=== PATIENT | female | born 1990 | race Caucasian/White ===

== ENCOUNTER 2020-03-11 13:45 | Inpatient (IN) | payer OTHER ==
[~2020-03-11] VITALS: Ht 165.1 cm; Wt 125.0 kg
[2020-03-11 14:31] VITALS: BP 129/78
[2020-03-11] MEDS ORDERED: OXYTOCIN 30U/ 0.9% NaCL 500ML 500 ML IV ONE (14:48)
[2020-03-11] MEDS ORDERED: D5%-LACTATED RINGERS 1,000 ML IV SCH (14:48)
[2020-03-11] MEDS ORDERED: OXYTOCIN 30U/ 0.9% NaCL 500ML 500 ML IV PRN (14:48)
[2020-03-11] MEDS ORDERED: ONDANSETRON 2MG/ML, 2ML IVPush PRN (15:00)
[2020-03-11] MEDS ORDERED: CALCIUM CARBONATE 500 MG TAB.CHEW PO PRN (15:00)
[2020-03-11] MEDS ORDERED: TERBUTALINE 1 MG/ML, 1ML SQ PRN (15:00)
[2020-03-11] MEDS ORDERED: FENTANYL PF 100 MCG/2ML IVPush PRN (15:00)
[2020-03-11] MEDS ORDERED: ALUMINUM/MAG/SIMETHICONE 30 ML UDC PO PRN (15:00)
[2020-03-11] MEDS ORDERED: TERBUTALINE 1 MG/ML, 1ML IVPush PRN (15:00)
[2020-03-11] MEDS ORDERED: SODIUM CITRATE/CITRIC ACID 30 ML UDC PO PRN (15:00)
[2020-03-11] MEDS: LACTATED RINGERS 1,000 ML IV SCH ×2 (15:15→22:30)
[2020-03-11] MEDS ORDERED: NEWBORN KIT ONE (15:38)
[2020-03-11] MEDS ORDERED: LIDOCAINE 1%, 20ML ONE (15:38)
[2020-03-11] MEDS ORDERED: MISOPROSTOL 200 MCG TABLET ONE (15:39)
[2020-03-11] MEDS ORDERED: OXYTOCIN 30U/ 0.9% NaCL 500ML 500 ML ONE (15:39)
[2020-03-11 15:40] LABS: BASOPHILS % (AUTO) 0 % (0-1); EOSINOPHILS % (AUTO) 2 % (1-7); LYMPHOCYTES % (AUTO) 13 % (22-44); MEAN CORPUSCULAR HEMOGLOBIN 28.7 pg (27.0-34.8); MEAN CORPUSCULAR HGB CONC 33.3 g/dL (32.4-35.8); MEAN PLATELET VOLUME 9.2 fL (7.4-10.4); MONOCYTES % (AUTO) 5 % (2-9); NEUTROPHILS % (AUTO) 81 % (42-75); PLATELET COUNT 314 x10^3/uL (130-400); RED BLOOD COUNT 4.65 x10^6/uL (3.82-5.3); RED CELL DISTRIBUTION WIDTH 14.4 % (9.6-15.2)
[2020-03-11 15:41] LABS: MD NO
[2020-03-11] MEDS ORDERED: PNV1TABL85 PO (16:33)
[2020-03-11] MEDS ORDERED: CETI-237 PO (16:33)
[2020-03-11] MEDS ORDERED: ERGO400T3 PO (16:33)
[2020-03-11] MEDS ORDERED: CALC400T6 PO (16:33)
[2020-03-11 17:26] LABS: ALANINE AMINOTRANSFERASE 20 U/L (12-78); ALBUMIN 2.5 g/dL (3.4-5.0); ANION GAP 9 mmol/L (5-15); CALCIUM 9.3 mg/dL (8.5-10.1); CHLORIDE 106 mmol/L (98-107); CREATININE 0.88 mg/dL (0.55-1.02)
[2020-03-11 17:28] LABS: ALKALINE PHOSPHATASE 279 U/L (45-117); BILIRUBIN, DIRECT < 0.1 mg/dL (0.1-0.2); BILIRUBIN,TOTAL 0.2 mg/dL (0.2-1.0); TOTAL PROTEIN 7.1 g/dL (6.4-8.2)
[2020-03-11 17:42] LABS: CREATININE,URINE RANDOM 84.8 mg/dL
[2020-03-11 17:46] LABS: AMPHETAMINE SCREEN, URINE Negative (Negative); BARBITURATE SCREEN, URINE Negative (Negative); BENZODIAZEPINE SCREEN, URINE Negative (Negative); CANNABINOID SCREEN, URINE Negative (Negative); COCAINE SCREEN, URINE Negative (Negative); METHADONE SCREEN, URINE Negative (Negative); OPIATE SCREEN, URINE Negative (Negative)
[2020-03-12] MEDS ORDERED: FENTANYL/BUPIV./NS/PF 250 ML EPIDCONT ONE (01:21)
[2020-03-12] MEDS ORDERED: FENTANYL PF 100 MCG/2ML ONE (01:39)
[2020-03-12] MEDS ORDERED: BUPIVACAINE 0.25% ONE (01:39)
[2020-03-12] MEDS: LACTATED RINGERS 1,000 ML IV SCH (02:09)
[2020-03-12] MEDS ORDERED: LACTATED RINGERS 1,000 ML IV SCH (02:17)
[2020-03-12] MEDS ORDERED: FENTANYL/BUPIV./NS/PF 250 ML EPIDCONT SCH (02:17)
[2020-03-12] MEDS ORDERED: LACTATED RINGERS 1,000 ML IVBOLUS PRN (02:30)
[2020-03-12] MEDS ORDERED: EPHEDRINE 50 MG/ML, 1ML IVPush PRN (02:30)
[2020-03-12] MEDS ORDERED: ONDANSETRON 2MG/ML, 2ML IVPush PRN (02:30)
[2020-03-12] MEDS ORDERED: ONDANSETRON 2MG/ML, 2ML ONE (06:50)
[2020-03-12] MEDS ORDERED: OXYTOCIN 30U/ 0.9% NaCL 500ML 500 ML ONE (10:15)
[2020-03-12] MEDS ORDERED: IBUPROFEN 600 MG TABLET ONE (10:15)
[2020-03-12] MEDS ORDERED: ONDANSETRON 2MG/ML, 2ML IV PRN (11:00)
[2020-03-12] MEDS ORDERED: OXYcodone IR 5MG TABLET PO PRN ×2 (11:00)
[2020-03-12] MEDS ORDERED: IBUPROFEN 600 MG TABLET PO PRN (11:00)
[2020-03-12] MEDS ORDERED: ACETAMINOPHEN 325 MG TABLET PO PRN ×2 (11:00)
[2020-03-12] MEDS ORDERED: OXYcodone/APAP 5/325MG TABLET PO PRN ×2 (11:00)
[2020-03-12] MEDS ORDERED: SIMETHICONE 80 MG CHEW TAB PO PRN (11:00)
[2020-03-12] MEDS ORDERED: HYDROcodone/APAP 5/325 TABLET PO PRN ×2 (11:00)
[2020-03-12] MEDS ORDERED: DOCUSATE 100 MG CAPSULE PO PRN (11:00)
[2020-03-12 12:40] VITALS: BP 131/81
[2020-03-12] MEDS: PRENATAL VIT/IRON/FA 1 EACH TABLET PO SCH (17:13)
[2020-03-12 17:22] VITALS: BP 114/75
[2020-03-12 17:57] LABS: BASOPHILS % (AUTO) 0 % (0-1); EOSINOPHILS % (AUTO) 0 % (1-7); LYMPHOCYTES % (AUTO) 11 % (22-44); MEAN CORPUSCULAR HEMOGLOBIN 28.8 pg (27.0-34.8); MEAN CORPUSCULAR HGB CONC 32.7 g/dL (32.4-35.8); MEAN PLATELET VOLUME 9.3 fL (7.4-10.4); MONOCYTES % (AUTO) 5 % (2-9); NEUTROPHILS % (AUTO) 83 % (42-75); PLATELET COUNT 290 x10^3/uL (130-400); RED BLOOD COUNT 4.06 x10^6/uL (3.82-5.3); RED CELL DISTRIBUTION WIDTH 14.5 % (9.6-15.2)
[2020-03-12 18:05] LABS: MD NO
[2020-03-12 20:20] VITALS: BP 136/83
[2020-03-12] MEDS: OXYTOCIN 30U/ 0.9% NaCL 500ML 500 ML IV SCH (20:36)
[2020-03-13 00:45] VITALS: BP 137/88
[2020-03-13] MEDS: OXYTOCIN 30U/ 0.9% NaCL 500ML 500 ML IV SCH (06:36)
[2020-03-13 08:00] VITALS: BP 128/81
[2020-03-13] MEDS ORDERED: IBUP-1222 PO (08:23)
[2020-03-13] MEDS: PRENATAL VIT/IRON/FA 1 EACH TABLET PO SCH (09:00)
== END 2020-03-13 13:00 | disposition home or self-care (01) | DRG 807 ==
LOC: LDOP 13:45 → LDIP 14:48 → 2NW 03-12 12:36
PROVIDERS: ADMIT Obstetrics & Gynecology Maternal & Fetal Medicine; ATTEND Student in an Organized Health Care Education/Training Program
PROC: 10E0XZZ Delivery of Products of Conception, External Approach (ICD-10-PCS; principal; 2020-03-12)
PROC: 3E0R3BZ Introduction of Anesthetic Agent into Spinal Canal, Percutaneous Approach (ICD-10-PCS; 2020-03-12)
PROC: 00HU33Z Insertion of Infusion Device into Spinal Canal, Percutaneous Approach (ICD-10-PCS; 2020-03-12)
PROC: 0HQ9XZZ Repair Perineum Skin, External Approach (ICD-10-PCS; 2020-03-12)
DX: O13.4 Gestational [pregnancy-induced] hypertension without significant proteinuria, complicating childbirth (principal); Z37.0 Single live birth; Z3A.38 38 weeks gestation of pregnancy; O42.02 Full-term premature rupture of membranes, onset of labor within 24 hours of rupture; O70.0 First degree perineal laceration during delivery; Z20.828 Contact with and (suspected) exposure to other viral communicable diseases
CPT/HCPCS: 36415; 80053; 80307; 82248; 82570; 84112; 84156; 84550; 85025; 86592; 86850; 86900; 87635; G0378; J2405; J3490; J2590; J3010; J7120